=== PATIENT | female | born 1970 | race Caucasian/White ===

== ENCOUNTER 2017-02-11 08:52 | Emergency (ER) | payer OTHER ==
[~2017-02-11] VITALS: Ht 160 cm; Wt 60.8 kg
[~2017-02-11 08:52] MED LIST: MECL-272 PO
[2017-02-11 09:10] VITALS: BP 129/82
--- NOTE | 2017-02-11 09:20 | NUR ---
Patient ambulated to bed 3
--- NOTE | 2017-02-11 09:22 | NUR ---
46/F BIB FRIEND C/O LOWER ABDOMINAL PAIN & vaginal discharge x1 wk inguinal area, fever. pt states she used over the counter cream with very little help.PT STES HAS LUMP UNDER L CHIN X 2 DAYS. denies dysuria, PT HAS NAUSEA BUT DENIES V/D; SKIN IS PINK/WARM/DRY; AAOX4 WITH EVEN AND STEADY GAIT; LUNGS CLEAR BL; HR EVEN AND REGULAR; PT DENIES ANY FEVER, CP, SOB, OR COUGH AT THIS TIME; PATIENT STATES PAIN OF 9/10 AT THIS TIME; VSS; PATIENT POSITIONED FOR COMFORT; HOB ELEVATED; BEDRAILS UP X2; BED DOWN. ER MD MADE AWARE OF PT STATUS.
[2017-02-11 10:13] LABS: BASOPHILS # (AUTO) 0.2 K/uL (0.00-0.22); BASOPHILS % (AUTO) 2.3 % (0.0-2.0); EOSINOPHILS # (AUTO) 0.1 K/uL (0-0.4); EOSINOPHILS % (AUTO) 1.6 % (0.0-4.0); HEMOGLOBIN 13.4 g/dL (12.0-16.0); LYMPHOCYTES # (AUTO) 2.3 K/uL (2.5-16.5); MEAN CORPUSCULAR HEMOGLOBIN 30 pg (27-31); MEAN CORPUSCULAR HGB CONC 33 g/dL (33-37); MEAN CORPUSCULAR VOLUME 91 fL (80-94); MONOCYTES # (AUTO) 0.5 K/uL (0.8-1.0); MONOCYTES % (AUTO) 5.8 % (1.7-9.3); NEUTROPHILS # (AUTO) 4.7 K/uL (1.8-7.7); NEUTROPHILS % (AUTO) 60.3 % (42.2-75.2); PLATELET COUNT (AUTO) 268 K/uL (140-450); RED BLOOD CELL COUNT(AUTO) 4.52 MIL/uL (4.20-5.40); RED CELL DISTRIBUTION WIDTH 11.6 % (11.6-13.7); WHITE BLOOD COUNT (AUTO) 7.8 K/uL (4.8-10.8)
[2017-02-11 10:31] LABS: ALBUMIN 3.9 g/dL (3.4-5.0); ANION GAP 12.6 (8-16); CALCIUM 9.4 mg/dL (8.5-10.1); CARBON DIOXIDE 30.6 mmol/L (21-32); CREATININE 0.7 mg/dL (0.6-1.3); POTASSIUM 4.2 mmol/L (3.5-5.1); TOTAL BILIRUBIN 0.5 mg/dL (0.0-1.0); TOTAL PROTEIN, SERUM 7.6 g/dL (6.4-8.2)
[2017-02-11 10:51] LABS: HIV RAPID SCREEN NON-REACTIVE (NON REACTIV)
[2017-02-11] MEDS ORDERED: cefTRIAXone 250 MG in LIDOCAINE 1% ED 0.9 ML IM ONE (11:35)
--- NOTE | 2017-02-11 11:55 | NUR ---
IV removed, catheter intact and site benign. Applied folded 4x4 gauze and tape to stop bleeding.
[2017-02-11 12:00] VITALS: BP 117/77
--- NOTE | 2017-02-11 12:00 | NUR ---
Patient discharged with v/s stable. Written and verbal after care instructions given and explained. Patient alert, oriented and verbalized understanding of instructions. Ambulatory with steady gait. All questions addressed prior to discharge. ID band removed. Patient advised to follow up with PMD. Rx of fluconazole, azitromycin& metronidazole given. Patient educated on indication of medication including possible reaction and side effects. Opportunity to ask questions provided and answered.
[2017-02-11 12:39] LABS: APPEARANCE,URINE HAZY (CLEAR); BILIRUBIN,URINE NEGATIVE (NEGATIVE); BLOOD, URINE 3+ (NEGATIVE); COLOR,URINE YELLOW (YELLOW); LEUKOCYTE ESTERASE ,URINE 2+ (NEGATIVE); NITRITE, URINE NEGATIVE (NEGATIVE); PROTEIN,URINE 1+ (NEGATIVE); UGLUCOSE NEGATIVE (NEGATIVE); UROBILINOGEN,URINE 0.2 EU/dL (0.2 - 1)
[2017-02-11 12:54] LABS: RBC,URINE 11-20 (MOD) /HPF (0-5)
[2017-02-11 12:55] LABS: BACTERIA,URINE 2+ /HPF (None Seen)
[2017-02-12 09:10] LABS: HIV 1/0/2 ABS, QUAL Non Reactive (Non Reactive)
[2017-02-13 06:21] LABS: CHLAMYDIA TRACHOMATIS AMP DNA Negative (Negative)
== END 2017-02-11 12:00 | disposition home or self-care (01) ==
LOC: MED 08:52
DX: B37.3 Candidiasis of vulva and vagina (principal); N73.9 Female pelvic inflammatory disease, unspecified; Z88.1 Allergy status to other antibiotic agents
CPT/HCPCS: 36415; 76856; 80053; 81001; 82150; 83690; 84703; 85025; 86592; 86702; 86703; 87086; 87210; 87491; 96372; 99285; J0696; J2001; Q0092

== ENCOUNTER 2017-12-25 08:55 | Emergency (ER) | payer OTHER ==
[~2017-12-25] VITALS: Ht 165.1 cm; Wt 64.1 kg
--- NOTE | 2017-12-25 09:05 | NUR ---
PT AMBULATED TO BED 12.
[2017-12-25 09:07] VITALS: BP 121/89
--- NOTE | 2017-12-25 09:13 | NUR ---
PATIENT PRESENTS TO ED WITH C/O RT ARM RASH/PAIN 8/10 WITH ERYTHEMA, SLIGHT SWELLING X 7 DAYS HX; HYPOTHYROID RX; --; DENIES N/V/D; SKIN IS PINK/WARM/DRY; AAOX4 WITH EVEN AND STEADY GAIT; LUNGS CLEAR BL; HR EVEN AND REGULAR; PT DENIES ANY FEVER, CP, SOB, OR COUGH AT THIS TIME; PATIENT STATES PAIN OF 8/10 AT THIS TIME; VSS; PATIENT POSITIONED FOR COMFORT; HOB ELEVATED; BEDRAILS UP X2; BED DOWN. DR MATAMOROS MADE AWARE OF PT STATUS.
--- NOTE | 2017-12-25 09:26 | NUR ---
Patient being evaluated by DR MATAMOROS at bedside.
[2017-12-25 09:35] VITALS: BP 125/68
--- NOTE | 2017-12-25 09:35 | NUR ---
Patient discharged with v/s stable. Written and verbal after care instructions given and explained. Patient alert, oriented and verbalized understanding of instructions. Ambulatory with steady gait. All questions addressed prior to discharge. ID band removed. Patient advised to follow up with PMD. Rx of ZYTRAC & SYNALAR given. Patient educated on indication of medication including possible reaction and side effects. Opportunity to ask questions provided and answered.
== END 2017-12-25 09:35 | disposition home or self-care (01) ==
LOC: MED 08:55
DX: T78.40XA Allergy, unspecified, initial encounter (principal); X58.XXXA Exposure to other specified factors, initial encounter; Z88.1 Allergy status to other antibiotic agents
CPT/HCPCS: 99283

== ENCOUNTER 2018-04-22 09:08 | Emergency (ER) | payer OTHER ==
[~2018-04-22] VITALS: Ht 165.1 cm; Wt 62.6 kg
[2018-04-22 09:15] VITALS: BP 127/82
--- NOTE | 2018-04-22 09:17 | NUR ---
PT AMBULATES TO BED 11 WITH STEADY GAIT
--- NOTE | 2018-04-22 09:26 | NUR ---
PATIENT PRESENTS TO ED WITH COMPLAINTS OF LOW BACK PAIN AND PAINFUL BURNING URINATION X 2 DAYS. PATIENT STATES " FEELS LIKE SOMETHING IS TIGHTENING AROUND MY KIDNEY." PATIENT PROVIDED URINE SAMPLE FOR ANALYSIS. DENIES N/V/D; SKIN IS PINK/WARM/DRY; AAOX4 WITH EVEN AND STEADY GAIT; LUNGS CLEAR BL; HR EVEN AND REGULAR; PT DENIES ANY FEVER, CP, SOB, OR COUGH AT THIS TIME; PATIENT STATES PAIN OF 9/10 AT THIS TIME; VSS; PATIENT POSITIONED FOR COMFORT; HOB ELEVATED; BEDRAILS UP X1; BED DOWN. ER MD MADE AWARE OF PT STATUS.
[2018-04-22] MEDS ORDERED: KETOROLAC 60 MG/2 ML VIAL IM ONE (09:55)
--- NOTE | 2018-04-22 10:05 | NUR ---
ULTRASOUND AT BEDSIDE
[2018-04-22 10:29] LABS: BASOPHILS % (AUTO) 0.4 % (0.0-2.0); EOSINOPHILS # (AUTO) 0.3 K/uL (0-0.4); EOSINOPHILS % (AUTO) 6.5 % (0.0-4.0); HEMATOCRIT 37.4 % (36-48); HEMOGLOBIN 12.7 g/dL (12.0-16.0); LYMPHOCYTES # (AUTO) 1.6 K/uL (2.5-16.5); LYMPHOCYTES % (AUTO) 31.5 % (20.5-51.1); MEAN CORPUSCULAR HEMOGLOBIN 30 pg (27-31); MEAN CORPUSCULAR HGB CONC 34 g/dL (33-37); MEAN CORPUSCULAR VOLUME 89.3 fL (80-94); MONOCYTES # (AUTO) 0.3 K/uL (0.8-1.0); NEUTROPHILS # (AUTO) 2.8 K/uL (1.8-7.7); NEUTROPHILS % (AUTO) 55.6 % (42.2-75.2); PLATELET COUNT (AUTO) 249 K/uL (140-450); RED BLOOD CELL COUNT(AUTO) 4.19 MIL/uL (4.20-5.40)
[2018-04-22 10:35] LABS: APPEARANCE,URINE CLEAR (CLEAR); BILIRUBIN,URINE NEGATIVE (NEGATIVE); BLOOD, URINE 3+ (NEGATIVE); COLOR,URINE YELLOW (YELLOW); LEUKOCYTE ESTERASE ,URINE NEGATIVE (NEGATIVE); NITRITE, URINE NEGATIVE (NEGATIVE); UGLUCOSE NEGATIVE (NEGATIVE)
[2018-04-22 10:45] LABS: ALBUMIN 3.3 g/dL (3.4-5.0); ANION GAP 10.3 (8-16); CARBON DIOXIDE 30.3 mmol/L (21-32); CREATININE 0.8 mg/dL (0.6-1.3); POTASSIUM 3.6 mmol/L (3.5-5.1); TOTAL BILIRUBIN 0.3 mg/dL (0.0-1.0)
[2018-04-22] MEDS ORDERED: HYDROmorphone 2 MG TAB PO ONE (11:05)
[2018-04-22] MEDS ORDERED: ONDANSETRON 4 MG ODT SL PRN (11:05)
[2018-04-22 11:08] LABS: RBC,URINE 3-10 (FEW) /HPF (0-5); WBC,URINE 0-5 (RARE) /HPF (0-5)
--- NOTE | 2018-04-22 11:58 | NUR ---
AWAITING DR. GALINOD'S DISCHARGE PAPERWORK
[2018-04-22 12:41] VITALS: BP 124/80
--- NOTE | 2018-04-22 12:41 | NUR ---
Patient discharged with v/s stable. Written and verbal after care instructions given and explained. Patient alert, oriented and verbalized understanding of instructions. Ambulatory with steady gait. All questions addressed prior to discharge. ID band removed. Patient advised to follow up with PMD. Rx of IBUPROFEN, FLOMAX, ZOFRAN, NORCO given. Patient educated on indication of medication including possible reaction and side effects. Opportunity to ask questions provided and answered.
== END 2018-04-22 12:41 | disposition home or self-care (01) ==
LOC: MED 09:08
DX: N20.2 Calculus of kidney with calculus of ureter (principal); E03.9 Hypothyroidism, unspecified
CPT/HCPCS: 36415; 76770; 80053; 81001; 81025; 83690; 85025; 87086; 96372; 99285; J1885; Q0092; S0119

== ENCOUNTER 2018-11-06 09:41 | Emergency (ER) | payer OTHER ==
[~2018-11-06] VITALS: Ht 165.1 cm; Wt 70.3 kg
--- NOTE | 2018-11-06 09:45 | NUR ---
PT AMBULATES TO BED 4
[2018-11-06 09:50] VITALS: BP 130/81
--- NOTE | 2018-11-06 09:56 | NUR ---
PT. ARRIVED TO THE ED DUE TO CHEST PAIN X2 DAYS. PT. STATES " I HAVE BEEN HAVING THIS PAIN FOR ABOUT 2 DAYS ON AND OFF AND ALSO I FEEL VERY SAD AND ANXIOUS , I HAVE BEEN UNDER A LOT OF STRESS , MY MOM JUST ". 05/06 INTERMITTENT RADIATING TO R ARM STABBING CHEST PAIN X 2 DAYS. PT DENIES ANY N/V/D. PT. STATES " WHEN I GET THIS FEELING I FEEL VERY ANXIOUS AND I GET SWEATY AND MY ARM AND LEG GETS TINGLING FEELING" BILAT HAND STREGTH 3+. PERRLA 3MM REACTIVE BILAT. PT IS AWAKE AND ABLE TO SPEAK IN FULL AND COMPLETE SENTECES. PT. HAS WARM AND DRY SKIN TO TOUCH.
[2018-11-06] MEDS ORDERED: LORazepam 1 MG TAB PO ONE (10:00)
[2018-11-06] MEDS ORDERED: IBUPROFEN 600 MG TAB PO ONE (10:50)
--- NOTE | 2018-11-06 11:30 | NUR ---
PT. RESTING COMFORTABLY IN BED, RR EVEN AND UNLABORED. VSS. WILL CONTINUE TO MONITOR.
[2018-11-06 12:40] VITALS: BP 139/71
== END 2018-11-06 12:41 | disposition home or self-care (01) ==
LOC: MED 09:41
DX: F43.20 Adjustment disorder, unspecified (principal); Z88.1 Allergy status to other antibiotic agents; Z79.899 Other long term (current) drug therapy
CPT/HCPCS: 81002; 81025; 93005; 99283

== ENCOUNTER 2019-01-09 11:08 | Emergency (ER) | payer OTHER ==
[~2019-01-09] VITALS: Ht 165.1 cm; Wt 63.5 kg
[2019-01-09 11:08] VITALS: BP 128/75
--- NOTE | 2019-01-09 11:08 | NUR ---
PATIENT AMBULATED TO ER BED 1
--- NOTE | 2019-01-09 11:59 | NUR ---
PATIENT PRESENTS TO ED WITH C/O CHEST PAIN RADIATING TO RIGHT ARM X1 WEEK, REPORTS DIZZINESS AND NAUSEA. TOOK ASPIRIN 81MG BEFORE TO ED, ALSO C/O BRUNING URINATION. AAOX4 WITH EVEN AND STEADY GAIT; LUNGS CLEAR BL; HR EVEN AND REGULAR; SKIN IS PINK/WARM/DRY; PATIENT STATES PAIN OF 4/10 AT THIS TIME; VSS; PATIENT POSITIONED FOR COMFORT; HOB ELEVATED; BEDRAILS UP X2; BED DOWN. ER MD MADE AWARE OF PT STATUS.
[2019-01-09 12:16] LABS: BASOPHILS % (AUTO) 0.4 % (0.0-2.0); EOSINOPHILS # (AUTO) 0.1 K/uL (0-0.4); EOSINOPHILS % (AUTO) 2.2 % (0.0-4.0); HEMATOCRIT 37.4 % (36-48); HEMOGLOBIN 12.4 g/dL (12.0-16.0); LYMPHOCYTES # (AUTO) 1.4 K/uL (2.5-16.5); LYMPHOCYTES % (AUTO) 25.3 % (20.5-51.1); MEAN CORPUSCULAR HEMOGLOBIN 30 pg (27-31); MEAN CORPUSCULAR HGB CONC 33 g/dL (33-37); MEAN CORPUSCULAR VOLUME 90.8 fL (80-94); MONOCYTES # (AUTO) 0.4 K/uL (0.8-1.0); MONOCYTES % (AUTO) 6.5 % (1.7-9.3); NEUTROPHILS # (AUTO) 3.7 K/uL (1.8-7.7); NEUTROPHILS % (AUTO) 65.6 % (42.2-75.2); PLATELET COUNT (AUTO) 259 K/uL (140-450); RED BLOOD CELL COUNT(AUTO) 4.12 MIL/uL (4.20-5.40); RED CELL DISTRIBUTION WIDTH 12.6 % (11.6-13.7); WHITE BLOOD COUNT (AUTO) 5.6 K/uL (4.8-10.8)
[2019-01-09 12:22] LABS: APPEARANCE,URINE CLEAR (CLEAR); BILIRUBIN,URINE NEGATIVE (NEGATIVE); BLOOD, URINE 2+ (NEGATIVE); COLOR,URINE YELLOW (YELLOW); LEUKOCYTE ESTERASE ,URINE NEGATIVE (NEGATIVE); NITRITE, URINE NEGATIVE (NEGATIVE); UGLUCOSE NEGATIVE (NEGATIVE)
[2019-01-09 12:24] LABS: ANION GAP 13.9 (8-16); CARBON DIOXIDE 28.3 mmol/L (21-32); CREATININE 0.7 mg/dL (0.6-1.3); POTASSIUM 4.2 mmol/L (3.5-5.1)
[2019-01-09 12:27] LABS: PROTHROMBIN TIME 10.2 secs (10.8-13.4)
[2019-01-09 12:30] LABS: ALBUMIN 3.6 g/dL (3.4-5.0); TOTAL BILIRUBIN 0.4 mg/dL (0.0-1.0)
[2019-01-09 12:34] LABS: RBC,URINE 11-20 (MOD) /HPF (0-5); WBC,URINE 0-5 /HPF (0-5)
[2019-01-09 12:44] LABS: FREE T4 (FREE THYROXINE) 1.03 ng/dL (0.76-1.46); THYROID STIMULATING HORMONE 0.08 uIU/mL (0.34-3.74)
--- NOTE | 2019-01-09 14:45 | NUR ---
US DONE AT BEDSIDE.
--- NOTE | 2019-01-09 15:05 | NUR ---
PT COULD NOT WAIT FOR US RESULT, WANTED TO GO HOME DUE TO "[employer]". MD AWARE, OK TO DISCHARGE, WILL LET HER KNOW IF ANYTHING WRONG. Patient discharged with v/s stable. Written and verbal after care instructions given and explained. Patient verbalized understanding. Ambulatory with steady gait. All questions addressed prior to discharge. Advised to follow up with PMD.
[2019-01-09 15:10] VITALS: BP 118/70
== END 2019-01-09 15:05 | disposition home or self-care (01) ==
LOC: MED 11:08
DX: R07.9 Chest pain, unspecified (principal); R42 Dizziness and giddiness; H57.13 Ocular pain, bilateral; E03.9 Hypothyroidism, unspecified; Z88.1 Allergy status to other antibiotic agents; Z79.899 Other long term (current) drug therapy
CPT/HCPCS: 36415; 71045; 76536; 80053; 81001; 81025; 83880; 84439; 84443; 84484; 85025; 85610; 85730; 99284; Q0092

== ENCOUNTER 2019-12-06 14:43 | Emergency (ER) | payer OTHER ==
[~2019-12-06] VITALS: Ht 165.1 cm; Wt 62.6 kg
[2019-12-06 15:01] VITALS: BP 104/75
--- NOTE | 2019-12-06 15:11 | NUR ---
TO LOBBY, VSS. AWAITING BED IN ED.
--- NOTE | 2019-12-06 16:12 | NUR ---
AMB TO BED 03
--- NOTE | 2019-12-06 16:23 | NUR ---
C/O R EAR PAIN X 3 DAYS & DIFFICULT SWALLOWING X YESTERDAY,WHITE DISCHARGE FROM R EAR X TODAY. PAIN BEGAN POSTERIOR TO RT EAR. PAIN INCREASES WITH SWALLOWING. STATES UNABLE TO EAT FOR 3 DAYS. DENIES SORE THROAT. NO DISCHARGE SEEN IN EAR CANAL. ABLE TO VISUALIZE RT TYMPANIC MEMBRANCE CLEARLY. DENIES DIZZINESS, N/V. TAKING TYLENOL TO NO RELIEF. MED HX: BACK SURGERY Addendum: 12/06/19 at 1632 by JOSELYN STATES SUBJECTIVE FEVERS
[2019-12-06 17:05] VITALS: BP 123/71
--- NOTE | 2019-12-06 17:05 | NUR ---
Patient discharged with v/s stable. Written and verbal after care instructions given and explained REGARDING EAR INFECTION. Patient alert, oriented and verbalized understanding of instructions. Ambulatory with steady gait. All questions addressed prior to discharge. ID band removed. Patient advised to follow up with PMD. Rx of MOTRIN AND CLINDAMYOCIN HYDROCHLORIDE given. Patient educated on indication of medication including possible reaction and side effects. Opportunity to ask questions provided and answered.
== END 2019-12-06 17:05 | disposition home or self-care (01) ==
LOC: MED 14:43
DX: H66.91 Otitis media, unspecified, right ear (principal); R63.0 Anorexia; Z88.1 Allergy status to other antibiotic agents; Z79.899 Other long term (current) drug therapy; Z98.890 Other specified postprocedural states
CPT/HCPCS: 99283

== ENCOUNTER 2020-02-24 00:53 | Emergency (ER) | payer OTHER ==
[~2020-02-24] VITALS: Ht 160 cm; Wt 66.2 kg
[~2020-02-24 00:53] MED LIST changes: -MECL-272 PO; +MECL-303 PO
[2020-02-24 01:06] VITALS: BP 130/89
--- NOTE | 2020-02-24 01:06 | NUR ---
PT NEGATIVE COVID SCREEN. PT WEARING MASK.
--- NOTE | 2020-02-24 01:10 | NUR ---
PT TAKEN TO BED 4
--- NOTE | 2020-02-24 01:22 | NUR ---
LAB AT BEDSIDE.
--- NOTE | 2020-02-24 01:35 | NUR ---
EKG PERFORMED AT BEDSIDE.
--- NOTE | 2020-02-24 01:38 | NUR ---
Dr. Mazariegos examining patient.
[2020-02-24] MEDS ORDERED: NACL 0.9% 1,000 ML IV ONE (01:45)
[2020-02-24 01:48] LABS: BASOPHILS % (AUTO) 0.4 % (0.0-2.0); EOSINOPHILS # (AUTO) 0.2 K/uL (0-0.4); EOSINOPHILS % (AUTO) 2.6 % (0.0-4.0); HEMATOCRIT 36.6 % (36-48); HEMOGLOBIN 12.2 g/dL (12.0-16.0); LYMPHOCYTES # (AUTO) 2.9 K/uL (2.5-16.5); LYMPHOCYTES % (AUTO) 36.2 % (20.5-51.1); MEAN CORPUSCULAR HEMOGLOBIN 31 pg (27-31); MEAN CORPUSCULAR HGB CONC 33 g/dL (33-37); MONOCYTES # (AUTO) 0.6 K/uL (0.8-1.0); MONOCYTES % (AUTO) 7.6 % (1.7-9.3); NEUTROPHILS # (AUTO) 4.3 K/uL (1.8-7.7); NEUTROPHILS % (AUTO) 53.2 % (42.2-75.2); PLATELET COUNT (AUTO) 294 K/uL (140-450); RED BLOOD CELL COUNT(AUTO) 3.98 MIL/uL (4.20-5.40); WHITE BLOOD COUNT (AUTO) 8.1 K/uL (4.8-10.8)
[2020-02-24 01:52] LABS: ALBUMIN 3.3 g/dL (3.4-5.0); CARBON DIOXIDE 26.7 mmol/L (21-32); FREE T4 (FREE THYROXINE) 1.15 ng/dL (0.76-1.46); MAGNESIUM 1.7 mg/dL (1.8-2.4); POTASSIUM 3.7 mmol/L (3.5-5.1); THYROID STIMULATING HORMONE 0.8 uIU/mL (0.34-3.74); TOTAL BILIRUBIN 0.2 mg/dL (0.0-1.0)
[2020-02-24] MEDS ORDERED: MAG SULF 2000 MG/WATER PREMIX 50 ML IV ONE (02:00)
--- NOTE | 2020-02-24 02:00 | NUR ---
PATIENT ALERT AND AWAKE, BREATHING EVEN AND UNLABORED
[2020-02-24 03:00] VITALS: BP 115/64
--- NOTE | 2020-02-24 03:00 | NUR ---
PATIENT STATES NO MORE PALPITATIONS AND FEELS BETTER
--- NOTE | 2020-02-24 03:00 | NUR ---
Patient discharged with v/s stable. Written and verbal after care instructions about palpitations given and explained. Patient verbalized understanding. Ambulatory with steady gait. All questions addressed prior to discharge. Advised to follow up with PMD.
== END 2020-02-24 03:00 | disposition home or self-care (01) ==
LOC: MED 00:53
DX: R00.2 Palpitations (principal); Z88.1 Allergy status to other antibiotic agents; Z79.899 Other long term (current) drug therapy
CPT/HCPCS: 36415; 80053; 83735; 84439; 84443; 85025; 93005; 96365; 99284; J3475; J7030

== ENCOUNTER 2020-07-21 09:20 | Emergency (ER) | payer OTHER ==
[~2020-07-21] VITALS: Ht 165.1 cm; Wt 65.8 kg
[2020-07-21 09:25] VITALS: BP 137/78
--- NOTE | 2020-07-21 09:30 | NUR ---
PATIENT AMBULATED TO BED 11.
--- NOTE | 2020-07-21 09:45 | NUR ---
49 YEAR OLD FEMALE COMPLAINS OF RIGHT EAR PAIN X 3 DAYS. PT STATES PAIN IS SEVERE, DID NOT SEE ANYTHING GO INTO EAR AND DENIES TRAUMA. PT STATES SHE HAS BEEN TAKING KEFLEX FROM DOCTOR BUT WANTED SOMETHING FOR THE PAIN. PT AOX4, BREATHING EVEN AND UNLABORED, SKIN WARM AND DRY. BED IN LOWEST POSITION, LOCKED, BED RAIL UPX1. PMH - HYPOTHYROIDISM ALLERGIES - NKA
--- NOTE | 2020-07-21 09:50 | NUR ---
Patient being evaluated by DR KEATING at bedside.
[2020-07-21] MEDS: HYDROcodone/APAP 5/325 MG 1 TAB TAB PO ONE (10:03)
--- NOTE | 2020-07-21 10:50 | NUR ---
Patient discharged with v/s stable. Written and verbal after care instructions given and explained. Patient alert, oriented and verbalized understanding of instructions. Ambulatory with steady gait. All questions addressed prior to discharge. ID band removed. Patient advised to follow up with PMD. Rx of norco and sudafed given. Patient educated on indication of medication including possible reaction and side effects. Opportunity to ask questions provided and answered. Pt understands not to drive under influence of norco.
[2020-07-21 10:52] VITALS: BP 119/81
== END 2020-07-21 10:50 | disposition home or self-care (01) ==
LOC: MED 09:20
DX: H92.01 Otalgia, right ear (principal); R03.0 Elevated blood-pressure reading, without diagnosis of hypertension; Z88.0 Allergy status to penicillin; Z79.899 Other long term (current) drug therapy
CPT/HCPCS: 99283

== ENCOUNTER 2020-07-31 19:08 | Emergency (ER) | payer OTHER ==
[~2020-07-31] VITALS: Ht 165.1 cm; Wt 67.1 kg
[2020-07-31 19:34] VITALS: BP 148/73
--- NOTE | 2020-07-31 19:43 | NUR ---
Dr. García examining patient.
--- NOTE | 2020-07-31 19:44 | NUR ---
49 y/o female presented to ED c/o neck pain of 10/10 that radiates to the bottom of her right ear. Pt stated that the pain has lasted 10 days. She went to the urgent care 10 days ago where she was diagnosed with an ear infection and was prescribed antibiotic therapy and pain medication. She took tylenol at 1900. Pt denies feeling SOB. Lung sounds were clear. Pt resting and laying down, bed in lowest position, one side rail up. Vital signs are stable at this time. Pt is in no acute distress. PMH: hyperthyroidism NKA
[2020-07-31] MEDS ORDERED: MORPHINE SULFATE 2 MG/ML SYR IM ONE (19:55)
--- NOTE | 2020-07-31 20:15 | NUR ---
PT TAKEN TO CT VIA W/C
[2020-07-31 20:24] LABS: BASOPHILS % (AUTO) 0.6 % (0.0-2.0); EOSINOPHILS # (AUTO) 0.2 K/uL (0-0.4); EOSINOPHILS % (AUTO) 2.6 % (0.0-4.0); HEMATOCRIT 34.7 % (36-48); LYMPHOCYTES # (AUTO) 2.8 K/uL (2.5-16.5); LYMPHOCYTES % (AUTO) 32.7 % (20.5-51.1); MEAN CORPUSCULAR HEMOGLOBIN 31 pg (27-31); MEAN CORPUSCULAR HGB CONC 35 g/dL (33-37); MEAN CORPUSCULAR VOLUME 89.6 fL (80-94); MONOCYTES # (AUTO) 0.5 K/uL (0.8-1.0); MONOCYTES % (AUTO) 5.5 % (1.7-9.3); NEUTROPHILS % (AUTO) 58.6 % (42.2-75.2); PLATELET COUNT (AUTO) 265 K/uL (140-450); RED BLOOD CELL COUNT(AUTO) 3.87 MIL/uL (4.20-5.40); RED CELL DISTRIBUTION WIDTH 12.8 % (11.6-13.7); WHITE BLOOD COUNT (AUTO) 8.5 K/uL (4.8-10.8)
--- NOTE | 2020-07-31 20:24 | NUR ---
PT RETURN FROM CT
[2020-07-31 20:33] LABS: ANION GAP 14.1 (8-16); CARBON DIOXIDE 22.6 mmol/L (21-32); POTASSIUM 3.7 mmol/L (3.5-5.1)
[2020-07-31 20:48] LABS: ALBUMIN 3.5 g/dL (3.4-5.0); FREE T4 (FREE THYROXINE) 1.06 ng/dL (0.76-1.46); THYROID STIMULATING HORMONE 0.13 uIU/mL (0.34-3.74); TOTAL BILIRUBIN 0.3 mg/dL (0.0-1.0)
--- NOTE | 2020-07-31 21:53 | NUR ---
Patient discharged with v/s stable. Written and verbal after care instructions given and explained. Patient alert, oriented and verbalized understanding of instructions. Ambulatory with steady gait. All questions addressed prior to discharge. ID band removed. Patient advised to follow up with PMD. Rx of TRAMADOL & ROBAXIN given. Patient educated on indication of medication including possible reaction and side effects. Opportunity to ask questions provided and answered.
[2020-07-31 21:58] VITALS: BP 148/73
== END 2020-07-31 21:53 | disposition home or self-care (01) ==
LOC: MED 19:08
DX: S16.1XXA Strain of muscle, fascia and tendon at neck level, initial encounter (principal); E07.9 Disorder of thyroid, unspecified; R03.0 Elevated blood-pressure reading, without diagnosis of hypertension; X58.XXXA Exposure to other specified factors, initial encounter; Y93.89 Activity, other specified; Y92.89 Other specified places as the place of occurrence of the external cause; Y99.8 Other external cause status
CPT/HCPCS: 36415; 70490; 80053; 84439; 84443; 85025; 96372; 99284; J2270; 99283

== ENCOUNTER 2022-02-22 21:06 | Emergency (ER) | payer OTHER ==
[~2022-02-22] VITALS: Ht 165.1 cm; Wt 61.2 kg
[2022-02-22 21:09] VITALS: BP 120/82
--- NOTE | 2022-02-22 21:28 | NUR ---
Patient placed to Chair B.
--- NOTE | 2022-02-22 21:39 | NUR ---
Patient returned back from radiology dept.
--- NOTE | 2022-02-22 21:42 | NUR ---
Blood for labwork drawn from right arm per fur blowing machine attendant. Patient tolerated well.
--- NOTE | 2022-02-22 21:52 | NUR ---
Wheel chair to bed 11.
[2022-02-22 21:53] LABS: BASOPHILS % (AUTO) 0.3 % (0.0-2.0); EOSINOPHILS # (AUTO) 0.2 K/uL (0-0.4); EOSINOPHILS % (AUTO) 1.7 % (0.0-4.0); HEMATOCRIT 38.3 % (36-48); HEMOGLOBIN 12.7 g/dL (12.0-16.0); LYMPHOCYTES # (AUTO) 3.4 K/uL (2.5-16.5); LYMPHOCYTES % (AUTO) 37.5 % (20.5-51.1); MEAN CORPUSCULAR HEMOGLOBIN 30 pg (27-31); MEAN CORPUSCULAR HGB CONC 33 g/dL (33-37); MEAN CORPUSCULAR VOLUME 90.9 fL (80-94); MONOCYTES # (AUTO) 0.5 K/uL (0.8-1.0); MONOCYTES % (AUTO) 5.6 % (1.7-9.3); NEUTROPHILS # (AUTO) 4.9 K/uL (1.8-7.7); NEUTROPHILS % (AUTO) 54.9 % (42.2-75.2); PLATELET COUNT (AUTO) 295 K/uL (140-450); RED BLOOD CELL COUNT(AUTO) 4.21 MIL/uL (4.20-5.40); RED CELL DISTRIBUTION WIDTH 12.6 % (11.6-13.7)
--- NOTE | 2022-02-22 22:00 | NUR ---
RECEIVED IN BED 11 WITH C/O CP X 3 DAYS. PT STATES HAS HAD 3 EPISODES WITH PALPITATIONS THIS WEEK. PMHx: Renal Disease, Hyperthyroid
[2022-02-22 22:27] LABS: ALBUMIN 3.5 g/dL (3.4-5.0); ANION GAP 16.1 (8-16); CARBON DIOXIDE 22.5 mmol/L (21-32); POTASSIUM 3.6 mmol/L (3.5-5.1); TOTAL BILIRUBIN 0.3 mg/dL (0.0-1.0)
[2022-02-22] MEDS ORDERED: LORazepam 0.5 MG TAB PO ONE (23:05)
[2022-02-22] MEDS ORDERED: NACL 0.9% 1,000 ML IV ONE (23:05)
[2022-02-22] MEDS ORDERED: PANT40EC PO (23:50)
[2022-02-22] MEDS ORDERED: IBUPROFEN 800 MG TAB PO ONE (23:55)
[2022-02-23 01:00] VITALS: BP 120/82
--- NOTE | 2022-02-23 01:00 | NUR ---
Patient discharged with v/s stable. Written and verbal after care instructions given and explained. Patient alert, oriented and verbalized understanding of instructions. Wheel Chair Assisted with to car. All questions addressed prior to discharge. ID band removed. Patient advised to follow up with PMD. Rx of PROTONIX given. Patient educated on indication of medication including possible reaction and side effects. Opportunity to ask questions provided and answered.
--- NOTE | 2022-02-27 09:57 | NUR ---
LATE ENTRY-NS BOULS END TIME.
== END 2022-02-23 01:00 | disposition home or self-care (01) ==
LOC: MED 21:06
DX: R07.89 Other chest pain (principal); E07.9 Disorder of thyroid, unspecified; Z79.899 Other long term (current) drug therapy
CPT/HCPCS: 36415; 71045; 80053; 81025; 83880; 84443; 84484; 85025; 85379; 93005; 96360; 99285

== ENCOUNTER 2024-04-29 14:48 | Emergency (ER) | payer OTHER ==
[~2024-04-29] VITALS: Ht 165.1 cm; Wt 63.5 kg
[~2024-04-29 14:48] MED LIST changes: +PANT40EC PO
[2024-04-29 14:56] VITALS: BP 134/78; PULSE 83; RESP 18; TEMP 97.7; O2SAT 99
[2024-04-29 15:57] LABS: BASOPHILS % (AUTO) 0.2 % (0.0-2.0); EOSINOPHILS # (AUTO) 0.2 K/uL (0-0.4); EOSINOPHILS % (AUTO) 2.5 % (0.0-4.0); HEMATOCRIT 35.3 % (36-48); HEMOGLOBIN 11.7 g/dL (12.0-16.0); LYMPHOCYTES # (AUTO) 2.2 K/uL (2.5-16.5); LYMPHOCYTES % (AUTO) 33.5 % (20.5-51.1); MEAN CORPUSCULAR HEMOGLOBIN 29 pg (27-31); MEAN CORPUSCULAR HGB CONC 33 g/dL (33-37); MEAN CORPUSCULAR VOLUME 88.7 fL (80-94); MONOCYTES # (AUTO) 0.4 K/uL (0.8-1.0); MONOCYTES % (AUTO) 6.3 % (1.7-9.3); NEUTROPHILS # (AUTO) 3.7 K/uL (1.8-7.7); NEUTROPHILS % (AUTO) 57.5 % (42.2-75.2); PLATELET COUNT (AUTO) 255 K/uL (140-450); RED BLOOD CELL COUNT(AUTO) 3.98 MIL/uL (4.20-5.40); RED CELL DISTRIBUTION WIDTH 13.2 % (11.6-13.7); WHITE BLOOD COUNT (AUTO) 6.5 K/uL (4.8-10.8)
[2024-04-29 16:13] LABS: ALBUMIN 3.3 g/dL (3.4-5.0); ANION GAP 10.7 (8-16); CALCIUM 8.2 mg/dL (8.5-10.1); CARBON DIOXIDE 29.2 mmol/L (21-32); CREATININE 1.1 mg/dL (0.6-1.3); POTASSIUM 3.9 mmol/L (3.5-5.1); TOTAL BILIRUBIN 0.2 mg/dL (0.0-1.0)
[2024-04-29] MEDS ORDERED: IBUP-2213 PO (17:28)
[2024-04-29] MEDS: KETOROLAC 30 MG/ML VIAL IM ONE (17:42)
[2024-04-29 17:50] VITALS: BP 111/67; PULSE 76; RESP 16; TEMP 97.7; O2SAT 99
== END 2024-04-29 17:50 | disposition home or self-care (01) ==
LOC: MED 14:49
DX: R07.89 Other chest pain (principal); M79.18 Myalgia, other site; F41.9 Anxiety disorder, unspecified; E05.90 Thyrotoxicosis, unspecified without thyrotoxic crisis or storm; Z87.448 Personal history of other diseases of urinary system; Z79.899 Other long term (current) drug therapy
CPT/HCPCS: 36415; 71045; 80053; 83880; 84443; 84484; 85025; 85379; 93005; 96372; 99285; J1885